=== PATIENT | male | born 1955 | race Caucasian/White ===

== ENCOUNTER 2017-11-29 18:10 | Emergency (ER) | payer BC, OTHER ==
[~2017-11-29 18:10] MED LIST: CRAN1000 PO; FOLI200T PO; INFL100P IV; LISI2.5T3 PO; METH2.5 PO; OXYB5 PO; OXYC-360 PO; PHEN-426 PO; PRED5 PO; TAB-TAB PO
[2017-11-29 18:32] VITALS: BP 227/114; PULSE 72; RESP 20; O2SAT 98
[2017-11-29] MEDS ORDERED: TRAM50 PO (18:56)
[2017-11-29] MEDS ORDERED: METH2.5T PO (18:56)
[2017-11-29] MEDS ORDERED: FOLI400T PO (18:56)
[2017-11-29] MEDS ORDERED: LISI-515 PO (18:56)
[2017-11-29] MEDS ORDERED: MULT-207 PO (18:56)
[2017-11-29] MEDS ORDERED: ZANT150T2 PO (18:57)
[2017-11-29] MEDS ORDERED: HUMI40KI SQ (18:57)
[2017-11-29] MEDS ORDERED: cloNIDine HCL 0.1 MG TAB PO ONE (19:30)
[2017-11-29] MEDS ORDERED: KETOROLAC TROMETHAMINE 60 MG/2 ML (IM) VIAL IM ONE (19:30)
[2017-11-29] MEDS ORDERED: DIAZEPAM 10 MG TAB PO ONE (19:30)
--- NOTE | 2017-11-29 19:32 | PD ---
HPI Chief Complaint: Injury Time Seen by Provider: 19:16 Travel History International Travel<30 days: No Contact w/Intl Traveler<30days: No Traveled to known affect area: No History of Present Illness HPI This is a 62-year-old male here for evaluation of left neck pain that radiates into the left arm for the last 2-3 days. He reports similar symptoms in the past diagnosed as cervical radiculopathy. He denies injury or trauma. Pain is exacerbated by movement of the neck from left to right and range of motion of the left upper extremity. Symptoms are slightly relieved after taking the Flexeril and Ultram today. He denies chest pain or shortness of breath. He reports he forgot to take his blood pressure medication this morning. He has no other symptoms. PFSH Past Medical History Arthritis: Yes (PSORIATIC ARTHRITIS) Asthma: No Blood Disorders: No Heart Rhythm Problems: No Cancer: No Cardiovascular Problems: Yes (HTN) High Cholesterol: No Chemotherapy: No Chest Pain: No Congestive Heart Failure: No COPD: No Diabetes: No Diminished Hearing: No Endocrine: No Genitourinary: Yes (BLOOD IN URINE) Hepatitis: No Hiatal Hernia: No Hypertension: Yes Immune Disorder: No Medical other: Yes (SCIATIC ARTHRITIS) Musculoskeletal: Yes Neurologic: No Psychiatric: No Reproductive: No Respiratory: No Integumentary: Yes (PSORIASIS) Myocardial Infarction: No Radiation Therapy: No Sleep Apnea: No Thyroid Disease: No Tetanus Vaccination: Unknown Influenza Vaccination: Yes Past Surgical History Surgical History: No Previous Surgery Abdominal Surgery: No AICD: No Arteriovenous Shunt: No Cardiac Surgery: No Ear Surgery: No Endocrine Surgery: No Eye Surgery: No Genitourinary Surgery: No Gynecologic Surgery: No Insulin Pump: No Joint Replacement: No Oral Surgery: Yes (T & A) Pacemaker: No Thoracic Surgery: Yes (3RD DEGREE STORY TO CHEST AREA) Other Surgery: Yes (SKIN GRAFT ON RIGHT AXILLA AND RIGHT ARM) Social History Alcohol Use: Yes (2 DRINKS PER DAY - VODKA) Tobacco Use: No (QUIT 1997) Substance Use: No Allergies-Medications (Allergen,Severity, Reaction): Coded Allergies: No Known Allergies (Verified Adverse Reaction, Unknown, 11/29/17) Reported Meds & Prescriptions Reported Meds & Active Scripts Active Reported Humira 2-Pack Inj (Adalimumab 2-Pack Inj) 40 Mg/0.8 Ml Syr 40 Mg SQ Q14D Zantac (Ranitidine HCl) 150 Mg Tab 150 Mg PO BID Ultram (Tramadol HCl) 50 Mg Tab 50 Mg PO Q4H One Daily (Multiple Vitamin) 1 Tab 1 Tab PO DAILY Folic Acid 0.4 Mg Tab 400 Mcg PO DAILY Methotrexate 2.5 Mg Tab 7.5 Mg PO Q7D Lisinopril 20 Mg Tab 20 Mg PO DAILY Review of Systems Except as stated in HPI: all other systems reviewed are Neg HENT: No: Headaches Cardiovascular: No: Chest Pain or Discomfort Respiratory: No: Shortness of Breath Gastrointestinal: No: Abdominal Pain Genitourinary: No: Dysuria Physical Exam Narrative GENERAL: Alert and well-appearing 62-year-old male. No distress. Resting comfortably on stretcher. SKIN: Warm and dry. No diaphoresis HEAD: Normocephalic. EYES: No injection or drainage. NECK: Supple. Limited range of motion from left to right due to pain in the left side of the neck. + TTP left trapezius muscle. CARDIOVASCULAR: Regular rate and rhythm. No murmur appreciated. RESPIRATORY: Breath sounds equal bilaterally. No accessory muscle use. GASTROINTESTINAL: Abdomen soft, non-tender, nondistended. MUSCULOSKELETAL: No cyanosis, or edema. +TTP left posterior biceps & left elbow. Abduction and external rotation of the shoulder reproduce pain BACK:without obvious deformity. No CVA tenderness. Data Data Last Documented VS Vital Signs Date Time Temp Pulse Resp B/P (MAP) Pulse Ox O2 Delivery O2 Flow Rate FiO2 11/29/17 18:45 Room Air 11/29/17 18:32 72 20 227/114 (151) 98 Orders Orders Ketorolac Inj (Toradol Inj) (11/29/17 19:30) Diazepam (Valium) (11/29/17 19:30) Clonidine (Catapres) (11/29/17 19:30) Diazepam (Valium) (11/29/17 19:45) MDM Medical Decision Making Medical Screen Exam Complete: Yes Emergency Medical Condition: Yes Interpretation(s) EKG: Sinus. Rate 63. No acute ischemic changes Differential Diagnosis Cervical radiculopathy, trapezius muscle spasm, ACS unlikely Narrative Course 62-year-old male here with left-sided neck and arm pain last 2-3 days. He has a history of cervical radiculopathy. The pain is reproducible to palpation of the soft tissue in the left trapezius muscle and the left bicep muscle. He was noted to be quite hypertensive on arrival. He reports he has not taken his blood pressure medication in 2 days because [place] the [place]. He denies chest pain or shortness of breath. He is clinically well-appearing. EKG showed no acute ischemic changes. He was given Toradol, Valium, clonidine and observed. Patient reassessed he reports symptom improvement. He reports the pain is almost completely resolved in the arm. He still has some stiffness in the neck. BP on recheck 186/98. He was instructed to take his current blood pressure medication as directed Diagnosis Primary Impression: Cervical radiculopathy Referrals: Primary Care Physician Additional Instructions: Patient says directed. Rest and stay well hydrated. Follow-up with her primary doctor. Return to the emergency department if he developed new or worsening symptoms. Scripts Methocarbamol (Robaxin) 750 Mg Tab 750 MG PO QID for Muscle Spasm, #12 TAB 0 Refills Prov: Miya Higuera 11/29/17 Ibuprofen (Ibuprofen) 800 Mg Tab 800 MG PO Q6HR Y for PAIN, #20 TAB 0 Refills Prov: Miya Higuera 11/29/17 Disposition: 01 DISCHARGE HOME Condition: Stable Miya Higuera Nov 29, 2017 19:32
[2017-11-29] MEDS ORDERED: DIAZEPAM 5 MG TAB PO ONE (19:45)
[2017-11-29] MEDS ORDERED: ROBA750T PO (20:47)
[2017-11-29] MEDS ORDERED: IBUP1TAB7 PO (20:47)
[2017-11-29 21:03] VITALS: BP 196/90
--- NOTE | 2017-11-30 23:02 | EKG ---
Date Performed: 11/29/2017 Time Performed: 19:14:38 PTAGE: 62 years EKG: Sinus rhythm BORDERLINE LEFT AXIS DEVIATION BORDERLINE ECG PREVIOUS TRACING : 02/02/2012 06.58 DOCTOR: Kavya Kearns Interpretating Date/Time 11/30/2017 22:54:37
== END 2017-11-29 21:03 | disposition home or self-care (01) ==
LOC: PHEFT 18:10
DX: M54.12 Radiculopathy, cervical region (principal); I10 Essential (primary) hypertension; L40.50 Arthropathic psoriasis, unspecified; R94.31 Abnormal electrocardiogram [ECG] [EKG]; Z79.899 Other long term (current) drug therapy
CPT/HCPCS: 93005; 96372; 99283; J1885